=== PATIENT | male | born 1995 ===

== ENCOUNTER 2020-05-14 05:01 | Day surgery (SDC) | payer OTHER ==
[~2020-05-14] VITALS: Ht 170.2 cm; Wt 87.1 kg
[2020-05-14] VITALS (8 sets, daily range): BP systolic 114–145; BP diastolic 63–74
[~2020-05-14 05:01] MED LIST: NO HOME MEDS; ringers solution, lacted 1,000 ML IV SCH
[2020-05-14] MEDS ORDERED: famotidine 20mg tablet PO ONE (05:30)
[2020-05-14] MEDS ORDERED: ceFAZolin 2gm in dextrose, iso 50 ML IV ONE (05:30)
[2020-05-14] MEDS ORDERED: ceFAZolin 1000mg inj ONE (06:40)
[2020-05-14] MEDS ORDERED: ROPIVAcaine 0.5% (5mg/ml) 30ml vial ONE ×2 (06:40→07:34)
[2020-05-14 07:18] LABS: BASOPHILS % (AUTO) 0.6 % (0-1); EOSINOPHILS # (AUTO) 0.1 X10'3 (0-0.9); EOSINOPHILS % (AUTO) 1.8 % (0-6); LYMPHOCYTES % (AUTO) 38.8 % (21-51); MEAN CORPUSCULAR HGB CONC 34.5 g/dL (33.0-36.5); MEAN PLATELET VOLUME 7.7 FL (7.4-10.4); MONOCYTES # (AUTO) 0.3 X10'3 (0-0.9); MONOCYTES % (AUTO) 5.3 % (2-12); NEUTROPHILS # (AUTO) 2.7 X10'3 (1.8-7.7); NEUTROPHILS % (AUTO) 53.5 % (42-75); PRE OP HEMATOCRIT 43.9 % (42.0-52.0); PRE OP HEMOGLOBIN 15.1 g/dL (14.0-17.9); PRE OP PLATELET COUNT 189 X10'3 (140-440); RED BLOOD COUNT 4.88 X10'6 (4.70-6.10); RED CELL DISTRIBUTION WIDTH 13.2 % (11.5-14.5)
[2020-05-14] MEDS ORDERED: cloNIDine hcl/PF 100mcg/ml inj ONE (07:31)
[2020-05-14] MEDS ORDERED: propofol inj 20 ML IV ONE (07:34)
[2020-05-14] MEDS ORDERED: dexamethasone sod phosphate 4mg/ml inj. ONE (07:34)
[2020-05-14] MEDS ORDERED: sevoflurane 250ml liquid IH ONE (07:34)
[2020-05-14] MEDS ORDERED: fentaNYL/PF 50MCG/1 ML 2ML syringe ONE ×2 (07:36→08:13)
[2020-05-14] MEDS ORDERED: MIDAZolam 5mg/5ml vial ONE (07:37)
[2020-05-14] MEDS ORDERED: ringers solution, lacted 1,000 ML IV SCH (08:47)
[2020-05-14] MEDS ORDERED: morphine 2 MG/ML inj. syringe IV PRN (08:50)
[2020-05-14] MEDS ORDERED: ondansetron/PF 4mg/2ml inj IV PRN (08:50)
[2020-05-14] MEDS ORDERED: morphine 4 MG/ML inj SYRINge IV PRN (08:50)
[2020-05-14] MEDS ORDERED: proCHLORperazine 10 MG/2 ml inj IV PRN (08:50)
[2020-05-14] MEDS ORDERED: meperidine/PF 25mg/ml syringe IV PRN ×2 (08:50)
--- NOTE | 2020-05-14 10:04 | NUR ---
Received from OR via [facility], accompanied by Anesthesiologist Placido and report given by Anesthesiolgist. Left knee wrapped with dressing plus darline wrap and hinge knee brace in place. Pedal pulses palpable bilaterally. VS WNL. Mask to 10L sats 100%. 20G right hand LR at 100cc/hr.Will monitor closely.
[2020-05-14] MEDS ORDERED: HYDROcodone/acetaminophen 10/325mg tab PO ONE (10:35)
[2020-05-14] MEDS: meperidine/PF 25mg/ml syringe IV PRN ×2 (10:36→10:48)
--- NOTE | 2020-05-14 11:24 | NUR ---
Pt discharged with guards by wheelchair to vehicle without incident. Brace remains in place and knee CDI. IV DC'd. Papers sent with guards including DC instructions. Pain tolerable at 4/10 oral pain meds given prior to leaving.
== END 2020-05-14 11:24 | disposition home or self-care (01) ==
LOC: EEVIPCON 05:01 → PAS 05:01
PROVIDERS: ATTEND Orthopaedic Surgery
DX: S83.511D Sprain of anterior cruciate ligament of right knee, subsequent encounter (principal); S83.282A Other tear of lateral meniscus, current injury, left knee, initial encounter; G89.18 Other acute postprocedural pain; Z79.899 Other long term (current) drug therapy; X58.XXXD Exposure to other specified factors, subsequent encounter; X58.XXXA Exposure to other specified factors, initial encounter; Y93.89 Activity, other specified; Y92.89 Other specified places as the place of occurrence of the external cause; Y99.8 Other external cause status
CPT/HCPCS: 29881; 29888; 36415; 64447; 76942; 82948; 85025; C1713; C1762; J0690; J0735; J1100; J2175; J2250; J2704; J3010; J7120; L1832; A4215; A4618; A6449; A7000; J2795